=== PATIENT | female | born 1955 ===

== ENCOUNTER 2016-06-16 12:00 | Outpatient (RCR) | payer MEDICARE, MEDICAID | END 2016-07-05 | disposition home or self-care (01) | LOC: WCC 12:00 | DX: L89.154 Pressure ulcer of sacral region, stage 4 (principal); G35 Multiple sclerosis; I10 Essential (primary) hypertension | CPT/HCPCS: 11042; 11043 ==

== ENCOUNTER → 2016-06-23 | Outpatient (CLI) | payer MEDICARE, MEDICAID ==
--- NOTE | 2016-06-23 17:03 | Diagnostic Imaging Report ---
Indication: Nonhealing open wounds posterior pelvis Technique: Coronal and axial and sagittal T1 fast spin echo, coronal and sagittal FSE IR, axial STIR FSE Comparison: None Findings: Midline retrocecal/upper coccygeal soft tissue defect is demonstrated. This demonstrates thinning of the subcutaneous fat and increased STIR and decreased T2 signal. The coccyx and sacrum appear to take a sharp first coccygeal bend at the sacrococcygeal junction, and the coccyx is not optimally visualized. On the sagittal images, there is suggestion of high signal within the C1 segment. This is seen on the STIR images, but not definitely corroborated on the T2-weighted images. No definite sacral signal abnormality. The uterus is diffusely enlarged and lobulated, consistent with fibroid change. Tiny foci of low T1 signal, bordering on signal void are seen scattered throughout the uterus. There appears to be a mixture of signal void and high T2 signal seen throughout the uterus on the STIR images. Slightly larger area of decreased T1 and increased STIR signal is seen in the lower uterine segment. No definite myometrial thickening is evident. No evidence of pelvic or hip signal abnormality. There is a small amount of fluid within the pelvis. There is a Sow catheter in the bladder Impression: Severely angulated sacrococcygeal junction. May be developmental, but traumatic injury as etiology of this cannot be ruled out, and correlation with plain radiographs is recommended Increased STIR signal within the first coccygeal segment. Indeterminate associated T1 signal. This raises the possibility of but is not definitive for acute osteomyelitis Enlarged fibroid uterus. Tiny foci of low T1 signal throughout the uterus probably represent calcifications, although could conceivably represent foci of gas. If the latter, infection with gas-forming organism should be considered. This finding cannot also be seen with recent uterine artery embolization Consider CT or plain radiographs to confirm calcific nature if there is high clinical suspicion Small amount free pelvic fluid, nonspecific but not physiologic in a postmenopausal female. Sow catheter within the bladder Findings discussed by phone with Dr. Mcneill at the time of interpretation
== END | disposition home or self-care (01) ==
LOC: MRI 13:30
DX: M86.9 Osteomyelitis, unspecified (principal); D25.9 Leiomyoma of uterus, unspecified
CPT/HCPCS: 72195